=== PATIENT | female | born 1955 | race Asian ===

== ENCOUNTER 2017-10-18 09:58 | Emergency (ER) | payer OTHER ==
[~2017-10-18] VITALS: Ht 152.4 cm; Wt 59.1 kg
[~2017-10-18 09:58] MED LIST: NOCURR
[2017-10-18 10:05] VITALS: BP 136/71
== END 2017-10-18 11:05 | disposition left against medical advice (07) ==
LOC: EMS 10:00
DX: R11.2 Nausea with vomiting, unspecified (principal); R19.7 Diarrhea, unspecified; Z53.21 Procedure and treatment not carried out due to patient leaving prior to being seen by health care provider